=== PATIENT | female | born 1975 | race Caucasian/White ===

== ENCOUNTER → 2019-09-24 10:29 | Outpatient (CLI) | payer OTHER, SELFPAY ==
--- NOTE | 2019-09-21 11:25 | BRBX_PTH ---
PATIENT: GRAY SANTAMARIA LOC: [facility] U#:[id number] AGE/SX: 50/F ROOM: RE09/24/[address]: Dr. Hiwot Zuluaga MD : 1975 BED: DIS: SPEC #: [id number] RECD: 09/24/19 12:16 STATUS: ROWDY JIMI #: [id number] RICK: 09/21/19 11:[address]: Hiwot Zuluaga DEPT: SURGICAL PATHOLOGY RECD BY: Humberto Rock ENTERED: 09/24/19 13:38 SP TYPE: BREAST BX OTHR DR: Dr. Suresh Chan MD Tissues: Right breast, NOS Procedures: Surgery Specimen Level IV HEADER OPERATION: Right breast stereotactic needle core biopsy PRE-OP DIAGNOSIS: Microcalcifications pleomorphic right breast inferior lateral TISSUE SUBMITTED: Right breast core tissue ISCHEMIC TIME: 1 minute FIXATION TIME: 78 hours MICROSCOPIC DIAGNOSIS Right breast, microcalcifications pleomorphic right breast inferior lateral, stereotactic core biopsy: Fibrocystic changes and intraductal hyperplasia without atypia. Focal polarizable and non-polarizable microcalcifications. Negative for malignancy. See comment. IJEOMA:renato 09/25/19 COMMENT Correlation with clinical, radiologic findings and appropriate follow up are necessary. MICROSCOPIC DESCRIPTION Slides are reviewed. GROSS DESCRIPTION Received is one container labeled with the patient's name and not further designated. The specimen consists of multiple elongated fragments of arriola-yellow fibroadipose tissue that in aggregate measure 5 x 3 x 0.3 cm. The entire specimen is submitted in two cassettes. / IJEOMA:renato 09/24/19 TC:5 CPT: 06616
--- NOTE | 2019-09-24 11:44 | OP.PCM_ITS ---
Report of Operation Date of Procedure: 09/24/19 Pre-Operative Diagnosis: abnormal calcifications in right breast mammograms Post-Operative Diagnosis: same Surgery/Procedure Performed:: right stereotactic breast biopsy Description of Surgical Findings:: swath of right breast calcifications - sampled Specimen's removed: right breast tissue Estimated Blood Loss (mL): minimal Description of Procedure: After informed consent was given, the patient was brought into the breast biopsy suite. Appropriate time out protocol was follwed. She was then placed in the prone position on the stereotactic biopsy table. The patient?s right breast was then placed at the opening at the head of the table. A r d engineer compression mammogram was then obtained in the CC view. The suspicious radiological lesion was then identified. Stereo pictures of the lesion were then taken for XYZ coordinates. The Mammotome biopsy stylus was then positioned where it would be entering into the patient?s breast. The skin at this site was then cleansed with a surgical skin preparation. The skin and subcutaneous tissues at this site were then infiltrated with 1% xylocaine. A small skin incision was made with an 11 blade scalpel. The biopsy stylus was then positioned into the patient?s breast at the proper coordinates of depth. Using the Mammotome vacuum-assist device, several core samples of breast tissue were obtained. A specimen mammogram was the obtained and revealed that calcifications were within the specimen. A hemostatic marker clip was then placed into the biopsy cavity and a r d engineer film revealed that it was properly deployed. The patient was then placed in the supine position and pressure was applied to the breast until no active bleeding was noted. Steristrips were applied to reapproximate the skin. A unilateral mammogram in the CC and MLO view were then taken which revealed that the marker clip was in the same area as the previous suspicious lesion. The patient tolerated the procedure well and was discharged from the breast biopsy suite in good condition. - Complications none noted
== END ==
PROVIDERS: Referring Provider Surgery; Visit Provider Surgery
DX: N62 Hypertrophy of breast (principal); R92.1 Mammographic calcification found on diagnostic imaging of breast
CPT/HCPCS: 19081; 88305; J7050; A4648

== ENCOUNTER 2021-10-22 13:10 | Emergency (ER) | payer OTHER, SELFPAY ==
[2021-10-22 13:11] VITALS: BP 126/87; PULSE 103; RESP 16; TEMP 36.4; O2SAT 97; BMI 24.9
--- NOTE | 2021-10-22 13:53 | RAD_ITS ---
STUDY: X-RAY CHEST REASON FOR EXAM: Female, 46 years old. Chest pain TECHNIQUE: Single AP portable view of the chest. COMPARISON: None. FINDINGS: EKG electrodes are seen. The lungs are clear and expanded. There is no demonstrated pleural abnormality. Normal size heart. Normal mediastinum and dariela. Normal visualized pulmonary arteries. Normal visualized aortic arch and descending thoracic aorta. Normal visualized thoracic spine. Normal visualized ribs, clavicles, and shoulders. There is no demonstrated abnormality of the visualized soft tissue structures of the upper abdomen. RAD/Chest 1 View (Portable) IMPRESSION: Normal x-ray examination of the chest. Electronically Signed: Geronimo Thomas MD at 14:50 EDT ,
--- NOTE | 2021-10-22 13:54 | EKG12_ITS ---
Test Reason : PALPITATIONS Blood Pressure : / mmHG Vent. Rate : 094 BPM Atrial Rate : 094 BPM P-R Int : 140 ms QRS Dur : 080 ms QT Int : 332 ms P-R-T Axes : 050 035 016 degrees QTc Int : 415 ms Sinus rhythm with Premature supraventricular complexes Otherwise normal ECG Confirmed by JACIEL CHONG, LUKE ([id number]), commissioning editor VILMA ZAVALA ([id number]) on 10/26/2021 10:40:23 AM Referred By: SAIRA/MIRTHA Confirmed By:LUKE GRISSOM MD
--- NOTE | 2021-10-22 14:03 | ED.VIS.CHEST ---
HPI History of Present Illness Chief Complaint: Palpitations Informant: patient Onset/Context/Timing Onset: Today and Hours Timing: Intermittent Current Severity: Mild Maximum Severity: Mild Worsened By: Nothing Relieved By: Nothing Associated Symptoms: Positive for Palpitations; Negative for Nausea, Vomiting, Diaphoresis, Dyspnea, Cough, Fever, Lightheadedness and Acid Reflux Narrative Narrative: 46-year-old female no significant past medical history. States since midnight last night she has felt a fluttering in her chest. Really denies pain. Does not feel that she can take a deep breath. Denies any cough or fever. No hemoptysis. She is never had a DVT or PE. No recent travel or surgery. Denies any leg pain or swelling. No hemoptysis. No recent exertional chest pain or cardiac history. She has no thyroid problems. She has had symptoms like this before but has never had it evaluated. She does drink 2 cups of coffee a day and has a Coke, so has a fair amount of daily caffeine intake. Prior Similar Symptoms: Yes Recent Illness/Hospitalization: No CVD Risk Factors: Negative for Hypertension, Diabetes, Hypercholesterolemia and Smoking PE Risk Factors: Negative for Recent Travel/Surgery, Recent Immobilization, Prior DVT or PE, Cancer and OCP + Smoking + >/=35 TAD Risk Factors: Negative for Marfan's Syndrome and Hypertension PFSH PFSH Medical History no medical history no medical history Home Medications vit,[id number] [Prenatabs FA ] 1 tab PO DAILY 05/22/13 [History Last Taken 06/03/13 20:00 1] sertraline 50 mg PO DAILY 05/22/13 [History Last Taken 06/02/13 20:00 1] Allergy/AdvReac Type Severity Reaction Status Date / Time No Known Allergies Allergy Verified 05/22/13 15:27 Social History Smoking Status: Former smoker ROS ROS ED ROS Narrative Palpitations. Denies any chest pain. No nausea, vomiting or diarrhea. Not short of breath. No leg pain or swelling. No hemoptysis. Review of Systems ROS Unobtainable: Denies due to encephalopathy Constitutional Constitutional ED: Denies fever(s) Eyes Eyes: Denies none ENT ENT ED: Denies ear pain Cardiovascular Cardiovascular: Reports as per HPI and palpitations; Denies chest pain or racing heartbeat Respiratory/Chest Respiratory/Chest: Denies dyspnea Gastrointestinal Gastrointestinal: Denies abdominal pain, diarrhea, nausea or vomiting Genitourinary Genitourinary ED: Denies dysuria Musculoskeletal Musculoskeletal: Denies myalgias Integumentary Denies rash Neurologic Neurologic: Denies headache(s) Psychiatric Psychiatric: Denies depression Endocrine Endocrinology: Denies polyuria Hematologic/Lymphatic Hematologic/Lymphatic: Denies easy bruising Allergic/Immunologic Allergic/Immunologic ED: Denies urticaria EXAM Physical Exam Narrative Exam Narrative: Middle-aged female no acute distress. Vital signs stable afebrile. Pulse ox 97% on room air no signs of hypoxia. HEENT exam unremarkable. Neck nontender. No lymphadenopathy. Lungs clear to auscultation bilaterally. Heart regular rhythm no murmur. Occasional PVC on the monitor. Abdomen soft nontender normal bowel sounds no peritoneal signs. Moving all 4 extremities. Calves are nontender without edema or cords. Neurologically awake and alert no focal motor deficits. Neck exam unremarkable no thyromegaly. Const Vital Signs: 10/22/21 13:11 10/22/21 13:40 10/22/21 14:03 Temperature 97.6 F L Temperature Source Temporal Pulse Rate 103 H Respiratory Rate 16 Respiratory Effort Normal Respiratory Pattern Normal Blood Pressure 126/87 H Blood Pressure Mean 100 Pulse Ox 97 Oxygen Delivery Method Room Air Room Air 10/22/21 16:03 Temperature Temperature Source Pulse Rate 76 Respiratory Rate 18 Respiratory Effort Respiratory Pattern Blood Pressure Blood Pressure Mean Pulse Ox 96 Oxygen Delivery Method Room Air Positive well nourished and well developed; Negative for obese, cachectic, contractures or unkempt General Appearance ED: well developed and NAD; Negative for unkempt, cachectic, contractures or pallor Nutritional Appearance: Negative for cachectic or obese HEENT Reports moist mucous membranes normocephalic and atraumatic Eyes PERRL and EOMs intact bilaterally Neck no lymphadenopathy, supple and no JVD General: Negative for tenderness Chest Wall inspection of chest normal and palpation of chest normal Resp normal respiratory effort and clear to auscultation bilaterally Effort and Inspection: respiratory distress Auscultation: Negative for rales, rhonchi or wheezes Cardio regular rate, regular rhythm, S1 normal heart sound, S2 normal heart sound and no murmurs GI normal to inspection, nondistended, normoactive bowel sounds, soft to palpation, non-tender, non-distended and no masses; Negative for hepatosplenomegaly Auscultation: Negative for hyperactive bowel sounds Back/Spine no CVA tenderness General Back: Negative for CVA tenderness Extremity normal to inspection General Extremety ED: Negative for edema or tenderness General Extremity: Negative for edema Neuro oriented x3 and CN's II-XII intact bilaterally Sensorium / Orientation: awake, alert, oriented to person, oriented to place and oriented to time Motor Exam: strength 5/5 throughout Psych mental status grossly normal Appearance: Negative for unkempt Mood & Affect: Negative for depressed or tearful Skin no rashes or lesions noted and no wounds General Skin Exam: Negative for jaundice or pallor MDM MDM MDM Narrative Medical decision making narrative: 46-year-old female with palpitations and PVCs on monitor. Exam otherwise is benign. Undergo cardiac work-up. Repeat exam patient is doing well at 4:20 PM will be discharged home. We went over all of her test results. Lab Data Attestation: I reviewed the patient's lab results. Lab results narrative: CBC normal. White count of 7. H&H 12 and 38. Electrolytes unremarkable gap of 4 normal BUN and creatinine. Glucose 124. Troponin less than 3. TSH normal at 2.1. Chest x-ray normal. Labs: Laboratory Results - last 24 hr 10/22/21 10/22/21 14:00 14:00 WBC 7.3 RBC 4.02 L Hgb 12.7 Hct 38.6 MCV 96.0 MCH 31.6 MCHC 32.9 RDW Std Deviation 40.4 RDW Coeff of Julien 11.5 L Plt Count 301 MPV 10.1 Immature Gran % (Auto) 0.400 Neut % (Auto) 64.5 Lymph % (Auto) 25.9 [place] % (Auto) 4.9 Eos % (Auto) 3.5 Baso % (Auto) 0.8 Absolute Neuts (auto) 4.7 Absolute Lymphs (auto) 1.90 Nucleated RBC % 0 Sodium 137 Potassium 3.7 Chloride 104 Carbon Dioxide 29.0 Anion Gap 4 L BUN 17 Creatinine 0.86 Estim Creat Clear Calc 71.33 Est GFR (MDRD) Af Amer 92 Est GFR (MDRD) Non-Af 76 BUN/Creatinine Ratio 19.8 Glucose 124 H Calcium 8.7 Troponin I High Sens < 3 L TSH 2.18 Radiography Chest X-Ray - ED: 1 View, Heart, Lungs, Mediastinum, Bony Structures and No Acute Disease Diagnostic Testing: Clinical Impression(s) from Imaging Studies Chest X-Ray 10/22/21 13:53 IMPRESSION: Normal x-ray examination of the chest. Electronically Signed: Geronimo Thomas MD at 14:50 EDT , Single view portable chest x-ray shows no acute antibodies read by myself and the radiologist. Rhythm Strip Rhythm Strip: Sinus Rhythm Rate: 94 Ectopy: PVC(s) EKG Initial EKG: Attestation: I personally reviewed and interpreted this EKG as follows: Interpretation: Sinus Rhythm and No Acute Injury Pattern Comments: Normal is rhythm rate of 84 with PVCs. No acute signs of MS or ischemia. No S1Q 3 T3. Discharge Plan Triage Chief Complaint: Palpitations ED Provider: John Gutiérrez Dx/Rx/DC Orders Clinical Impression: Palpitation, PVC (premature ventricular contraction) Instructions: PVCs, ED Palpitations Prescriptions: No Action sertraline 50 MG tablet 50 mg PO DAILY RF: 0 vit,[id number] [Prenatabs FA] 1 TABLET tablet 1 tab PO DAILY RF: 0 Primary Care Provider: Yenifer Beth Referrals: Yenifer Beth MD [Primary Care Provider] - 1 Week if not improving Activity Restrictions/Additional Instructions: Follow-up with primary care physician. Decrease her daily caffeine. Disposition Disposition: Home, Self Care
[2021-10-22 14:09] LABS: Absolute Neutrophil Count 4.7 X10^3/uL (2.0-7.7); Basophil# 0.06 X10^3/uL; Basophil% 0.8 % (0-1); Eosinophil# 0.26 X10^3/uL; Eosinophils% 3.5 % (0-5); Hematocrit 38.6 % (37-47); Hemoglobin 12.7 g/dL (12.0-15.0); Lymphocyte % 25.9 % (19-41); Mean Corp Hgb Conc 32.9 g/dL (32-36); Mean Corpuscular Hgb 31.6 pg (27.0-32.0); Mean Platelet Vol. 10.1 fl (6.2-12.0); Monocyte# 0.36 X10^3/uL; Monocyte% 4.9 % (0-10); NRBC Flagged by Analyzer 0 % (0-5); Neutrophil # 4.73 X10^3/uL (2.7-7.7); Neutrophil % 64.5 % (47-70); Platelet Count 301 K/mm3 (150-450); RBC Distribution Width CV 11.5 % (11.6-14.6); RBC Distribution Width SD 40.4 fl (35.1-43.9); Red Blood Count 4.02 M/mm3 (4.2-5.4); White Blood Count 7.3 K/mm3 (4.4-11.0)
[2021-10-22 14:34] LABS: Anion Gap 4 (5-15); BUN 17 mg/dL (7-18); BUN/Creat Ratio 19.8 RATIO (10-20); Calcium,Total 8.7 mg/dL (8.5-10.1); Chloride 104 mmol/L (98-107); Creatinine, Serum 0.86 mg/dL (0.55-1.02); EST Glomerular Filtration Rate 76 mL/min (>60); Est Glom Filt Rate - Afr Amer 92 mL/min (>60); Estimated Creatinine Clearance 71.33 ml/min; Glucose 124 mg/dL (74-106); Potassium 3.7 mmol/L (3.5-5.1); Sodium Level 137 mmol/L (136-145); Thyroid Stim Hormone (TSH) 2.18 uIU/mL (0.358-3.74); Troponin-I HS < 3 pg/mL (3.0-54.0)
[2021-10-22 16:03] VITALS: PULSE 76; RESP 18; O2SAT 96
[2021-10-22 16:31] VITALS: BP 120/80; PULSE 74; RESP 18
== END 2021-10-22 16:35 | disposition home or self-care (01) ==
PROVIDERS: Emergency Provider Emergency Medicine; PCP Family Medicine; Visit Provider Emergency Medicine
DX: R00.2 Palpitations (principal); I49.3 Ventricular premature depolarization; Z87.891 Personal history of nicotine dependence
CPT/HCPCS: 71045; 80048; 84443; 84484; 85025; 93005; 99285; A4216

== ENCOUNTER → 2023-01-06 | Outpatient (CLI) | payer OTHER, SELFPAY ==
--- NOTE | 2023-01-06 08:58 | BI_ITS ---
MAMMOGRAPHY - UNILATERAL DIAGNOSTIC: RIGHT BREAST REASON FOR EXAM: Female, 47 years old. Abnormal screening mammogram for microcalcifications. PERTINENT HISTORY: Non-contributory. TECHNIQUE: Magnification spot views of the right breast in mediolateral oblique and craniocaudad projections were obtained. CAD: Full Field Digital Mammography with Computer Added Detection was performed. COMPARISON: Comparison is made with prior outside examination from 03/30/2023. FINDINGS: Breast Composition: The breasts are heterogeneously dense, which may obscure small masses. Cluster microcalcifications is seen in the inferior central aspect of the right breast. A biopsy is recommended. A tissue clip marker is seen in the adjacent breast tissue. No other significant abnormalities are identified. BI/DIAG MAMM W/CAD, UNILAT IMPRESSION: Cluster of microcalcifications in the slightly inferior central portion of the right breast. Biopsy recommended. ASSESSMENT CATEGORY: BIRADS Category 4: Suspicious - Biopsy Should Be Considered. A letter regarding these results will be sent to the patient by the facility within 30 days. Approximately 10% of breast cancers are not detected by mammography. A normal mammogram should not delay biopsy of a clinically suspicious abnormality. Electronically Signed: Geronimo Thomas MD at 10:19 EDT ,
== END | disposition home or self-care (01) ==
PROVIDERS: PCP Family Medicine; Referring Provider Nurse Practitioner Family; Visit Provider Nurse Practitioner Family
DX: R92.8 Other abnormal and inconclusive findings on diagnostic imaging of breast (principal)
CPT/HCPCS: 77065

== ENCOUNTER → 2023-01-24 | Outpatient (CLI) | payer OTHER, SELFPAY ==
--- NOTE | 2023-01-24 | BRBX_PTH ---
PATIENT: GRAY SANTAMARIA LOC: [facility] U#:[id number] AGE/SX: 47/F ROOM: RE01/24/[address]: Dr. Perry Francis MD : 1975 BED: DIS: 01/24/2023 SPEC #: [id number] RECD: 01/24/23 12:20 STATUS: ROWDY JIMI #: [id number] RICK: 01/24/23 00:[address]: Perry Francis DEPT: SURGICAL PATHOLOGY RECD BY: Humberto Rock ENTERED: 01/24/23 12:26 SP TYPE: BREAST BX OTHR DR: Dr. Yenifer Beth MD Tissues: A - Right breast, NOS B - Right breast, NOS Procedures: Surgery Specimen Level IV HEADER OPERATION: Right breast stereotactic needle core biopsy PRE-OP DIAGNOSIS: Microcalcifications two areas right breast TISSUE SUBMITTED: A - Superior calcifications, B - Inferior calcifications ISCHEMIC TIME: 2 minutes FIXATION TIME: 8.5 hours MICROSCOPIC DIAGNOSIS A. Right breast, superior region, stereotactic needle core biopsy: Mild fibrocystic change. Focal intraductal hyperplasia without atypia. Rare banal microcalcifications. No evidence of malignancy. B. Right breast, inferior region, stereotactic needle core biopsy: Fibrocystic change with polarizable crystalline debris. Focal intraductal hyperplasia without atypia. Polarizable and non-polarizable microcalcifications. No evidence of malignancy. AM:renato 01/25/2023 MICROSCOPIC DESCRIPTION Slides are reviewed. GROSS DESCRIPTION A - Received in fixative is one container labeled with the patient's name and designated right superior breast. The specimen consists of multiple elongated fragments of arriola-yellow fibroadipose tissue that in aggregate measure 2.5 x 2.0 x 0.2 cm. The entire specimen is submitted in one cassette. B - Received in fixative is one container labeled with the patient's name and designated right inferior breast. The specimen consists of multiple elongated fragments of arriola-yellow fibroadipose tissue mixed with blood clot that in aggregate measure 3.0 x 2.5 x 0.3 cm. The entire specimen is submitted in one cassette. / SJ:renato 01/24/2023 TC:5 CPT: 32586 x2
--- NOTE | 2023-01-24 10:28 | HP.PCM_ITS ---
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 Perry Francis MD) Anxiety Depression Surgical History?(Updated 01/13/23 @ 14:58 by Alisson Lopez) S/P breast biopsy Social History?(Updated 01/13/23 @ 14:58 by Alisson Lopez) Smoking Status:? Former smoker alcohol intake:? current HPI HPI HPI: Leg and had pain for 2 -[id number]-[id number] female was referred for surgical consultation regarding an abnormal mammogram.? She is referred by Dr. Yenifer Beth and a written compromise surgical consult recommendations will return to her.? It is of note that chart review suggest that on September 24, 2019 Dr. Hiwot Zuluaga performed a stereotactic needle core right breast biopsy for abnormal calcifications. Right breast, microcalcifications pleomorphic right breast inferior lateral, stereotactic core biopsy: ?Fibrocystic changes and intraductal hyperplasia without atypia. ?Focal polarizable and non-polarizable microcalcifications. ?Negative for malignancy. As noted below on January 06, 2023 the patient had a unilateral diagnostic right anuradha mogram which was felt to be BI-RADS Category 4 because of clustered calcifications in the inferior central aspect of the right breast.? A tissue marker clip is seen within this area.? On December 28, 2022 she had had diagnostic bilateral mammography.? I have personally reviewed the imaging. It is of additional note that on December 28, 2022 at the [facility] the patient had bilateral screening mammography.? The report states that there is a biopsy clip in the right breast.? There are multiple punctate calcifications right breast posterior depth superior region seen only on the MLO oblique view.? There is an additional cluster of punctate calcifications in the right breast 6 o'clock position.? Follow-up imaging of both of these areas recommended.? The right unilateral mammogram report as noted below only discusses the 6:00 calcifications. 47-year-old female.? G3, P3 atrial.? Menarche age 16.? First child born when she was 23.? She did not breast-feed.? She has had the 1 previous breast biopsy stereotactically and noted on the right.? She states that this was very uncomfortable and that she had pain and swelling for 2 weeks..? Family history is negative for breast cancer January 06, 2023 MAMMOGRAPHY - UNILATERAL DIAGNOSTIC:? RIGHT BREAST REASON FOR EXAM: ? Female, 47 years old.? Abnormal screening mammogram for microcalcifications. PERTINENT HISTORY:? Non-contributory. TECHNIQUE: ? Magnification spot views of the right breast in mediolateral oblique and craniocaudad projections were obtained.? CAD: Full Field Digital Mammography with Computer Added Detection was performed. COMPARISON: ? Comparison is made with prior outside examination from 03/30/2023. FINDINGS: Breast Composition:? The breasts are heterogeneously dense, which may obscure small masses. Cluster microcalcifications is seen in the inferior central aspect of the right breast. A biopsy is recommended. A tissue clip marker is seen in the adjacent breast tissue. No other significant abnormalities are identified. BI/DIAG MAMM W/CAD, UNILAT IMPRESSION: Cluster of microcalcifications in the slightly inferior central portion of the right breast. Biopsy recommended. ? ? ASSESSMENT CATEGORY: BIRADS Category 4:? Suspicious - Biopsy Should Be Considered.? A letter regarding these results will be sent to the patient by the facility within 30 days. ? Approximately 10% of breast cancers are not detected by mammography.? A normal mammogram should not delay biopsy of a clinically suspicious abnormality. ? Electronically Signed: Geronimo Thomas MD at 10:19 EDT Reading Location ID and State: [facility] / [place] , Service support? , ROS General General: No weight change, appetite, fatigue, colon cancer, breast cancer or weakness HEENT HEENT: No difficulty swallowing, eye injury, eye surgery, swollen glands or hoarseness Endo Endocrine: No thyroid disease, diabetes mellitus, thyroid cancer, Hair loss, heat intolerance or cold intolerance Skin Skin: No rash or changing moles Breast Breast: No left breast lump, right breast lump, nipple discharge, breast pain, abnormal mammogram, abnormal US or breast enlargement Musc Musculoskeletal: No back problems, arthritis, rheumatoid arthritis, gout or joint pain Cardio Cardiovascular: No murmur, pacemaker, heart disease, atrial fibrillation, high blood pressure, heart attack, heart stent, palpitations, shortness of breat with exertion or chest pain Psych Psychiatric: Yes depression and anxiety; No hearing voices Resp Respiratory: No shortness of breath, No sleep apnea, No cough, No COPD, No asthma, No emphysema and No wheezing Gastro Gastrointestinal: No abdominal pain, No nausea or vomiting, No diarrhea, No constipation, No blood in stool, No acid reflux, No hemorrhoids, No ulcers, No gallbladder problem and No black,tarry stools Logan Hematologic: No blood thinners, No blood disorders, No bleeding, No anemia and No blood clots Neuro Neurologic: No system reviewed and no additional complaints, except as documented, No as per HPI, No abnormal gait, No abnormal hearing, No abnormal movements, No abnormal speech, No behavioral changes, No burning sensations, No confusion, No convulsions, No disequilibrium, No dizziness, No localized weakness, No frequent falls, No headache(s), No lack of coordination, No loss of vision, No memory loss, No numbness, No other visual disturbances, No radicular pain, No restless legs, No sensory deficit, No syncope, No tingling, No tremor(s), No weakness and No other Exam Chest Other: Bilateral breast: No focal mass.? No nipple discharge.? No axillary or clavicular adenopathy Assessment and Plan Assessment and Plan (1) Abnormal mammogram of right breast: ?Status:?Acute ?Plan: I had extensive discussion with the patient today regarding the imaging findings Her baseline bilateral mammograms were performed at [facility] under compression views were performed at the [facility].? And so doing I am suspicious that the new smaller clustered calcifications in the upper right breast were not thoroughly reviewed on the compression views.? I certainly see them on the compression views and I certainly see them on the MLO view provided from the [facility].? I believe that these warrant stereotactic core biopsy with a smaller gauge needle We then had an extensive discussion regarding the larger area of calcifications 6:00 right breast.? The number of calcifications has increased in nature.? The patient is very much interested in drawing a definitive complete conclusion this problem and does not want to be faced with this on an annual basis due to the stress on the patient and her family.? We discussed assuming that the pathology is benign based upon the previous biopsy and doing nothing versus repeating a stereotactic needle core biopsy for pathology versus doing a stereotactic bracketed wire local with lumpectomy. My final recommendation for the patient is to do a smaller gauge needle core biopsy of both the right breast medial lateral view upper right breast and a repeat stereotactic biopsy of the 6:00 right breast.? That would be simultaneously.? We would then await pathology.? If both lesions were benign then I propose for the patient that we returned to the stereotactic unit and do a bracketed wire Loke of the 6:00 area and performed then a wire localized lumpectomy of this site in an attempt to remove and eradicate the vast majority of the microcalcifications.? This would give her the best chance of not having repeated concerns on radiographic interpretation in the future.? However the patient is aware that even this is not a guarantee of success as there could be still residual calcifications left subsequent to the lumpectomy.? The reason I am recommending that we do a repeat core biopsy this area prior to doing the bracketed lumpectomy is that if malignancy is currently present then we would want to do a sentinel lymph node biopsy at the time of her lumpectomy. She has had an opportunity to ask and have questions answered.? She would like to schedule with a double stereotactic core biopsy right breast of the much smaller less well-defined microcalcifications in the upper right breast only seen on MLO and a repeat core biopsy of the right breast 6:00 larger area of microcalcifications. I very much appreciate the kind option of assisting with her surgical care Copy: Dr. Yenifer Francis M.D., F.Chao.C.S. I have examined the patient and the H&P has been reviewed. There are no clinical changes since date of exam. Perry Francis M.D., Constantin.Chao.C.S.
--- NOTE | 2023-01-24 11:57 | PCM.OPRPT ---
Report of Operation Date of Procedure: 01/24/23 Pre-Operative Diagnosis: Microcalcifications upper mid right breast Microcalcifications lower mid right breast 6:00 Post-Operative Diagnosis: Same Surgery/Procedure Performed:: Stereotactic needle core biopsy upper mid right breast and lower mid right breast Description of Surgical Findings:: Timeout informed consent was obtained. 47-year-old female was taken to the mammography suite. She was placed prone on the table right wrist was placed in a lateral medial view the small cluster of microcalcifications in the upper mid right breast were very difficult to appreciate. Several images were obtained until I thought that we had it localized. Stereotactic images were applied obtained. Replaced image #1. The breast was prepped with Betadine. 1% lidocaine was used as a local anesthetic. 15 cc was used. A 10-gauge resolved needle was utilized. Small stab incision was made the device was advanced to depth prefire films were obtained. Admittedly at this point the calcifications very vague. Cores were taken from 9:00 to 3:00. The patient did have discomfort with the lab sampling. I obtained cores specimen mammograms suggesting 1 core possibly with some few calcifications. I elected to stop the procedure at this point. I placed a petite dog bone marking clip. Pressure was held for hemostasis. Steri-Strip applied. Images were now changed to the inferior right breast still from the lateral medial view. The larger area of microcalcifications readily identified. Stereotactic images were obtained. Single target site selected. I replaced image #2. Breast was prepped with Betadine. 1% lidocaine was used as a local anesthetic. 20 cc was used. A combination of a 25-gauge needle and a spinal needle was used to inject the local. Small stab incision was created and then an 8 gauge resolved needle was advanced to prefire depth. Prefire images obtained demonstrating adequate localization. The device was fired. Cores were again obtained from 9:00 to 3:00. A dog bone marking clip was placed. Specimen mammograms obtained with multiple cores with Microcalcifications. She was released from the device and pressure was extensively held. Each incision was treated with alcohol prep and Steri-Strips and Telfa OpSite dressing. The specimens were individually placed in formalin for analysis. She tolerated the procedure well no apparent complication. She will be established with an office appointment follow-up. Perry Francis M.D., F.A.C.S. Surgeon: Perry Francis Type of Anesthesia: Local
== END | disposition home or self-care (01) ==
PROVIDERS: PCP Family Medicine; Referring Provider Surgery; Visit Provider Surgery
DX: R92.8 Other abnormal and inconclusive findings on diagnostic imaging of breast (principal)
CPT/HCPCS: 19081; 19082; 88305; J7050

== ENCOUNTER → 2024-05-14 | Outpatient (CLI) | payer OTHER, SELFPAY ==
--- NOTE | 2024-05-14 11:40 | BRBX_PTH ---
PATIENT: GRAY SANTAMARIA LOC: [facility] U#:[id number] AGE/SX: 48/F ROOM: RE05/14/[address]: Dr. Bj Lagunas MD : 1975 BED: DIS: 05/14/2024 SPEC #: [id number] RECD: 05/14/24 11:40 STATUS: ROWDY JIMI #: [id number] RICK: 05/14/24 11:[address]: Bj Lagunas DEPT: SURGICAL PATHOLOGY RECD BY: Bridget Martin ENTERED: 05/14/24 13:26 SP TYPE: BREAST BX OTHR DR: Dr. Yenifer Beth MD Tissues: Left breast, NOS Procedures: Surgery Specimen Level IV HEADER OPERATION: Left breast stereotactic biopsy PRE-OP DIAGNOSIS: Left breast calcifications TISSUE SUBMITTED: Left breast core tissue Ischemic Time: 1 minute Fixation Time: 11 hours MICROSCOPIC DIAGNOSIS Left breast calcification, stereotactic core biopsy: Fibrocystic changes, adenosis and intraductal hyperplasia without atypia. Focal microcalcifications. Negative for malignancy. See comment. 05/15/2024 COMMENT Correlation with clinical, radiologic findings and appropriate follow up are necessary. MICROSCOPIC DESCRIPTION Slides are reviewed. GROSS DESCRIPTION Received is one container labeled with the patient's name and not further designated. The specimen consists of multiple elongated fragments of arriola-yellow fibroadipose tissue that in aggregate measure 7.0 x 3.0 x 0.3 cm. The specimen is totally submitted in three cassettes. 05/14/2024 TC:5 CPT:92694
--- NOTE | 2024-05-14 11:46 | OP.PCM_ITS ---
Problems Associated Problem List Diagnoses (1) Abnormal mammogram of left breast: Report of Operation Date of Procedure: 05/14/24 Pre-Operative Diagnosis: Abnormal left breast mammogram/microcalcifications Post-Operative Diagnosis: Abnormal left breast mammogram/microcalcifications. Surgery/Procedure Performed:: Left breast stereotactic biopsy x 1 site. Description of Surgical Findings:: Microcalcifications noted in biopsy specimen radiograph Surgeon: Bj Lagunas outpatient scheduler: None Type of Anesthesia: Local Special Medications: None Specimen's removed: Left breast tissue with microcalcifications. Drains: None Estimated Blood Loss (mL): Minimal Fluids Replaced: None Description of Procedure: The patient is a 48-year-old female who recently underwent screening mammography and was found to have microcalcifications in the left breast. She has undergone multiple right sided breast biopsies for microcalcifications in the past. This was her first time having microcalcifications that warranted biopsy in the left breast. All of her previous right-sided pathology was benign. She was recently seen in my office for this new left breast microcalcifications. I offered her stereotactic biopsy of the left breast calcifications. We discussed the details of the planned procedure including risks, benefits and alternatives. She wished to proceed. The patient was brought to the breast imaging suite. After obtaining consent for a left breast stereotactic biopsy, the patient was then placed prone on the mammotome table. Once she was in place, the left breast was placed into compression and x-rays were obtained until we were able to readily identify the microcalcifications of concern. Review of her imaging reveals that these microc alcifications are rather scattered/diffuse. Once a large cluster of calcifications was identified, stereotactic views x 2 were performed. Using these 2 stereotactic views, we were able to target upon these calcifications. At this point the breast was then prepped and draped in the usual manner. Local anesthetic was infiltrated into the area to be biopsied. A #11 blade was then used to make a small skin incision. The biopsy probe was then inserted and advanced to the desired depth. Additional views were then obtained before firing the biopsy probe. The probe seem to be in satisfactory positioning. The probe was then fired. Numerous circumferential suction biopsies were obtained with good tissue sampling. The retrieved tissue was then plated and then a specimen radiograph was then performed. This revealed numerous calcifications and numerous samples confirming appropriate biopsy. A marking clip was then deployed. The biopsy probe was then withdrawn. Manual pressure was held on this area to ensure hemostasis and minimize bruising. Next Mastisol and Steri- Strips were applied as dressing. The patient will then undergo postprocedure mammogram. The image immediately after clip placement showed the clip to be in the desired location. She tolerated the procedure well. I will contact her later this week with pathology results. Grafts/Implants Used: Marking clip deployed at biopsy site. Complications None Admit VTE Documentation VTE Present on Admission: No VTE Pharm Prophylaxis ordered?: No Reason prophylaxis not ordered:: Treatment Not Indicated Procedures Integumentary [id number]: [id number] Bx breast 1st lesion strtctc
== END | disposition home or self-care (01) ==
PROVIDERS: PCP Family Medicine; Referring Provider Surgery; Visit Provider Surgery
DX: R92.8 Other abnormal and inconclusive findings on diagnostic imaging of breast (principal); R92.0 Mammographic microcalcification found on diagnostic imaging of breast; Z87.891 Personal history of nicotine dependence; F41.9 Anxiety disorder, unspecified
CPT/HCPCS: 19081; 88305